=== PATIENT | female | born 1935 | race Two or more races ===

== ENCOUNTER 2017-05-11 11:29 | Observation (INO) | payer MEDICARE, BC ==
[~2017-05-11] VITALS: Ht 157.5 cm; Wt 56.7 kg
[~2017-05-11 11:29] MED LIST: ASPI-816 PO; AZI250 PO; BACDS PO; CALC500T76 PO; CHOL10005 PO; COL625PT PO; ESTROGEN; GABA-547 PO; GLUC500C29 PO; HYDR-3083 PO; HYDR473S4 PO; LEV75 PO; LEVO75TA68 PO; LEVO75TA73 PO; LEVO88TA45 PO; LIS20 PO; LISI-362 PO; LISI-374 PO; METF-409 PO; METF-420 PO; MOME30SO TP; MULTI VITAMIN PO; PROC-35 PO; SIMV-44 PO
--- NOTE | 2017-05-11 11:32 | ER Report ---
History and Physical Time Seen By MD: 11:32 Hx. of Stated Complaint: Diarrhea and abdominal pain HPI/ROS 82-year-old female sent in for a primary care physician's office has been sick since yesterday morning and started out she calls a sour stomach nausea progressed to having multiple episodes of diarrhea states that she's had 10 episodes this morning since stools have been yellow in color crampy abdominal pain nausea Remainder of the 14 system rev: Yes Allergies: Coded Allergies: pneumococcal vaccine (Verified Allergy, Intermediate, 05/11/17) codeine (Unverified Allergy, Mild, NAUSEA/VOMITING, 05/11/17) Home Meds Active Scripts Gabapentin (GABAPENTIN) 100 Mg Capsule, 1-2 MG PO QHS, #30 CAPSULE 3 Refills Prov:BRODY ESCOBAR MD 12/24/14 Levothyroxine Sodium (LEVOTHYROXINE SODIUM) 88 Mcg Tablet, 1 TAB PO QDAY, #90 TAB 3 Refills Prov:MEE DYSON MD 09/20/14 Metformin Hcl (METFORMIN HCL) 1,000 Mg Tablet, 1 TAB PO BID, #180 TAB 3 Refills TAKE ONE TABLET BY MOUTH TWO TIMES A DAY Prov:MEE DYSON MD 06/19/14 Aspirin (Children's Aspirin) 81 Mg Tab.chew, 1 TAB PO DAILY, #100 TAB 4 Refills Prov:MEE DYSON MD 02/01/14 Past Medical/Surgical History type 2 diabetes, ashley, esophageal dilitations Reviewed Nurses Notes: Yes Old Medical Records Reviewed: Yes Hx Smoking: No Smoking Status: Never Smoker Hx Substance Use Disorder: No Hx Alcohol Use: Yes (IN PAST. NO ALCOHOL FOR 45 YEARS) Family History of: HTN, Diabetes Constitutional Vital Sign - Last 24 Hours 05/11/17 05/11/17 05/11/17 05/11/17 11:30 11:39 11:44 11:59 Temp 97.5 Pulse 79 81 67 Resp 18 B/P (MAP) 127/68 127/68 (87) Pulse Ox 96 96 97 O2 Delivery Room Air 05/11/17 05/11/17 05/11/17 05/11/17 12:00 12:14 12:19 12:31 Pulse 67 68 B/P (MAP) 111/56 (74) 140/72 (94) Pulse Ox 96 96 05/11/17 05/11/17 05/11/17 2/20/18 12:34 12:39 12:44 12:59 Pulse 66 61 60 56 Pulse Ox 98 95 96 99 05/11/17 05/11/17 05/11/17 05/11/17 13:00 13:14 13:29 13:30 Pulse 63 62 B/P (MAP) 146/65 (92) 138/61 (86) Pulse Ox 94 96 05/11/17 05/11/17 05/11/17 05/11/17 13:44 13:59 14:00 14:05 Pulse 61 65 62 B/P (MAP) 130/68 (88) Pulse Ox 95 97 92 05/11/17 05/11/17 05/11/17 05/11/17 14:10 14:15 14:20 14:25 Pulse 64 62 62 65 Pulse Ox 93 96 91 96 05/11/17 05/11/17 05/11/17 05/11/17 14:30 14:35 14:40 14:45 Pulse 69 63 61 61 B/P (MAP) 146/73 (97) Pulse Ox 95 95 95 95 05/11/17 05/11/17 05/11/17 05/11/17 14:55 15:00 15:05 15:10 Pulse 66 62 65 68 B/P (MAP) 145/70 (95) Pulse Ox 94 95 91 94 05/11/17 05/11/17 15:15 15:20 Pulse 78 65 Pulse Ox 93 Intake and Output 05/11/17 05/11/17 05/12/17 15:00 23:00 07:00 Intake Total 1000 ml Balance 1000 ml Physical Exam 82-year-old female alert oriented anxious mild distress HEENT head is normocephalic atraumatic tympanic membranes are non-reddened throat is non- reddened mucous membranes are moist neck is supple no JVD heart rate is regular no murmurs rubs or gallops lungs are decreased bilateral bases abdomen is tender mid epigastrically hyperactive bowel sounds moves all extremities no peripheral edema Medical Decision Making Data Points Result Diagram: 05/11/17 1145 05/11/17 1145 Laboratory Hematology Test 05/11/17 11:35 05/11/17 11:45 Urine Color Yellow Urine Clarity Slightly-cloudy Urine pH 5.0 pH (4.8-9.5) Urine Specific [place] 1.018 Urine Protein 100 mg/dL (NEGATIVE) Urine Glucose (UA) 500 mg/dL (NEGATIVE) Urine Ketones Trace mg/dL (NEGATIVE) Urine Blood Negative (NEGATIVE) Urine Nitrite Negative (NEGATIVE) Urine Bilirubin Negative (NEGATIVE) Urine Urobilinogen Negative mg/dL (0.2-1.9) Urine Leukocyte Esterase Moderate (NEGATIVE) Urine RBC 1 /HPF (0-2/HPF) Urine WBC 53 /HPF (0-5/HPF) Urine Squamous Epithelial Cells Many /LPF (</=FEW) Urine Bacteria Many /HPF (NONE-FEW) Urine Mucus Few /HPF (NONE-FEW) Red Blood Count 5.12 M/uL (4.17-5.56) Mean Corpuscular Volume 87.5 fL (80.0-96.0) Mean Corpuscular Hemoglobin 30.0 pg (26.0-33.0) Mean Corpuscular Hemoglobin Concent 34.3 g/dL (32.0-36.0) Red Cell Distribution Width 13.3 % (11.5-14.5) Mean Platelet Volume 7.5 fL (7.2-11.1) Neutrophils (%) (Auto) 79.5 % (39.4-72.5) Lymphocytes (%) (Auto) 14.1 % (17.6-49.6) Monocytes (%) (Auto) 5.8 % (4.1-12.4) Eosinophils (%) (Auto) 0.1 % (0.4-6.7) Basophils (%) (Auto) 0.5 % (0.3-1.4) Nucleated RBC Relative Count (auto) 0.1 /100WBC Neutrophils # (Auto) 6.1 K/uL (2.0-7.4) Lymphocytes # (Auto) 1.1 K/uL (1.3-3.6) Monocytes # (Auto) 0.4 K/uL (0.3-1.0) Eosinophils # (Auto) 0.0 K/uL (0.0-0.5) Basophils # (Auto) 0.0 K/uL (0.0-0.1) Nucleated RBC Absolute Count (auto) 0.01 K/uL Sodium Level 135 mmol/L (137-145) Potassium Level 3.7 mmol/L (3.5-5.0) Chloride Level 100 mmol/L (98-107) Carbon Dioxide Level 18 mmol/L (22-31) Blood Urea Nitrogen 23 mg/dl (7-18) Creatinine 1.40 mg/dl (0.52-1.04) Glomerular Filtration Rate Calc 36.2 Random Glucose 254 mg/dl (75-110) Lactate 2.8 mmol/L (0.7-2.1) Calcium Level 8.8 mg/dl (8.4-10.2) Total Bilirubin 0.7 mg/dl (0.2-1.3) Aspartate Amino Transf (AST/SGOT) 106 U/L (0-35) Alanine Aminotransferase (ALT/SGPT) 177 U/L (0-56) Alkaline Phosphatase 182 U/L (0-126) Troponin I < 0.012 ng/ml Total Protein 7.5 gm/dl (6.3-8.2) Albumin 4.2 g/dl (3.5-5.0) Amylase Level 52 U/L (0-110) Lipase 75 U/L (23-300) Helicobacter pylori IgG Antibody Negative (NEGATIVE) Chemistry Test 05/11/17 11:35 05/11/17 11:45 Urine Color Yellow Urine Clarity Slightly-cloudy Urine pH 5.0 pH (4.8-9.5) Urine Specific [place] 1.018 Urine Protein 100 mg/dL (NEGATIVE) Urine Glucose (UA) 500 mg/dL (NEGATIVE) Urine Ketones Trace mg/dL (NEGATIVE) Urine Blood Negative (NEGATIVE) Urine Nitrite Negative (NEGATIVE) Urine Bilirubin Negative (NEGATIVE) Urine Urobilinogen Negative mg/dL (0.2-1.9) Urine Leukocyte Esterase Moderate (NEGATIVE) Urine RBC 1 /HPF (0-2/HPF) Urine WBC 53 /HPF (0-5/HPF) Urine Squamous Epithelial Cells Many /LPF (</=FEW) Urine Bacteria Many /HPF (NONE-FEW) Urine Mucus Few /HPF (NONE-FEW) White Blood Count 7.7 k/uL (4.5-11.0) Red Blood Count 5.12 M/uL (4.17-5.56) Hemoglobin 15.4 g/dL (12.0-16.0) Hematocrit 44.8 % (34.0-47.0) Mean Corpuscular Volume 87.5 fL (80.0-96.0) Mean Corpuscular Hemoglobin 30.0 pg (26.0-33.0) Mean Corpuscular Hemoglobin Concent 34.3 g/dL (32.0-36.0) Red Cell Distribution Width 13.3 % (11.5-14.5) Platelet Count 291 K/uL (150-450) Mean Platelet Volume 7.5 fL (7.2-11.1) Neutrophils (%) (Auto) 79.5 % (39.4-72.5) Lymphocytes (%) (Auto) 14.1 % (17.6-49.6) Monocytes (%) (Auto) 5.8 % (4.1-12.4) Eosinophils (%) (Auto) 0.1 % (0.4-6.7) Basophils (%) (Auto) 0.5 % (0.3-1.4) Nucleated RBC Relative Count (auto) 0.1 /100WBC Neutrophils # (Auto) 6.1 K/uL (2.0-7.4) Lymphocytes # (Auto) 1.1 K/uL (1.3-3.6) Monocytes # (Auto) 0.4 K/uL (0.3-1.0) Eosinophils # (Auto) 0.0 K/uL (0.0-0.5) Basophils # (Auto) 0.0 K/uL (0.0-0.1) Nucleated RBC Absolute Count (auto) 0.01 K/uL Glomerular Filtration Rate Calc 36.2 Lactate 2.8 mmol/L (0.7-2.1) Calcium Level 8.8 mg/dl (8.4-10.2) Total Bilirubin 0.7 mg/dl (0.2-1.3) Aspartate Amino Transf (AST/SGOT) 106 U/L (0-35) Alanine Aminotransferase (ALT/SGPT) 177 U/L (0-56) Alkaline Phosphatase 182 U/L (0-126) Troponin I < 0.012 ng/ml Total Protein 7.5 gm/dl (6.3-8.2) Albumin 4.2 g/dl (3.5-5.0) Amylase Level 52 U/L (0-110) Lipase 75 U/L (23-300) Helicobacter pylori IgG Antibody Negative (NEGATIVE) Urinalysis Test 05/11/17 11:35 Urine Color Yellow Urine Clarity Slightly-cloudy Urine pH 5.0 pH (4.8-9.5) Urine Specific [place] 1.018 Urine Protein 100 mg/dL (NEGATIVE) Urine Glucose (UA) 500 mg/dL (NEGATIVE) Urine Ketones Trace mg/dL (NEGATIVE) Urine Blood Negative (NEGATIVE) Urine Nitrite Negative (NEGATIVE) Urine Bilirubin Negative (NEGATIVE) Urine Urobilinogen Negative mg/dL (0.2-1.9) Urine Leukocyte Esterase Moderate (NEGATIVE) Urine RBC 1 /HPF (0-2/HPF) Urine WBC 53 /HPF (0-5/HPF) Urine Squamous Epithelial Cells Many /LPF (</=FEW) Urine Bacteria Many /HPF (NONE-FEW) Urine Mucus Few /HPF (NONE-FEW) ED Course/Re-evaluation Clinical Indication for ER IV: Hydration ED Course Received one and half liters of normal saline in the emergency room did receive a gram of Rocephin IV coverage for her UTI culture was ordered did talk to Kishan hospitalist he agrees to accept this patient for dehydration and gastroenteritis UTI Re-evaluation still c/o crampy abdominal pain. Family is very verbal that they would like patient to stay overnight I have asked Dr. Kishan Cervantes to come see patient to evaluate for admission Decision to Disposition Date: May 11, 2017 Decision to Disposition Time: 11:50 Depart Departure Latest Vital Signs Vital Signs Date Time Temp Pulse Resp B/P (MAP) Pulse Ox O2 Delivery O2 Flow Rate FiO2 05/11/17 15:20 65 05/11/17 15:15 93 05/11/17 15:00 145/70 (95) 05/11/17 11:30 97.5 18 Room Air Impression: Primary Impression: Gastroenteritis Additional Impressions: UTI (urinary tract infection) Dehydration Condition: Improved Disposition: Admitted from ER Referrals: CECILIA OLEA PA-C (PCP) Problem Qualifiers TEZ MCCRAY May 11, 2017 11:32
[2017-05-11] MEDS ORDERED: NS(*) 0.9% 1000 ML BAG 1,000 ML IV ONE ×2 (11:40→14:10)
[2017-05-11] MEDS ORDERED: ONDANSETRON 4 MG/2 ML VIAL IVP ONE (11:40)
--- NOTE | 2017-05-11 11:48 | EKG ---
FACILITY: [facility] PATIENT NAME: ALAN CUNNINGHAM : [id number] MR: [id number] V: [id number] EXAM DATE: ORDERING PHYSICIAN: TEZ MCCRAY TECHNOLOGIST: ABIODUN Franco Reason : PAIN Blood Pressure : / mmHG Vent. Rate : 080 BPM Atrial Rate : 080 BPM P-R Int : 188 ms QRS Dur : 092 ms QT Int : 372 ms P-R-T Axes : 067 -10 029 degrees QTc Int : 429 ms Sinus rhythm with premature atrial complexes Nonspecific T wave abnormality Abnormal ECG No previous ECGs available Confirmed by JENNA ARTIS ([id number]) on 05/11/2017 10:22:16 PM Referred By: MAHENDRA Confirmed By:JENNA ARTIS
[2017-05-11 11:54] LABS: PLATELET COUNT, AUTOMATED 291 K/uL (150-450)
[2017-05-11] MEDS ORDERED: fentaNYL CITR 100 MCG/2 ML AMP IVP ONE (11:55)
[2017-05-11] MEDS ORDERED: PANTOPRAZOLE SOD 40 MG IV VIAL IVP ONE (11:55)
--- NOTE | 2017-05-11 13:23 | RADIOLOGY IMAGING REPORT ---
FACILITY: [facility] [place] PATIENT NAME: Tamera Clemente : 1935 MR: [id number] V: [id number] EXAM DATE: ORDERING PHYSICIAN: TEZ MCCRAY TECHNOLOGIST: Location: [facility] Patient: Tamera Clemente : 1935 Visit/Account:[id number] Date of Sevice: 05/11/2017 CT abdomen and pelvis without contrast Indication: Abdominal pain for one day. Comparison: None Available. Technique: Axial CT images are obtained through the abdomen and pelvis. Reformatted coronal and sagit anna images were reviewed. IV contrast was not administered. One of the following dose optimization techniques was utilized in the performance of this exam: auto mated exposure control; adjustment of the mA and/or kV according to the patient's size; or use of an iterative reconstruction technique. Specific details can be referenced in the facility's radiology C T exam operational policy. Findings: Lower lung arrieta: Chronic calcifications in the lower lobes. No focal infiltrate or effusion. Evaluation of the solid organs of the abdomen is limited without IV contrast. Liver: No focal parenchymal abnormality of the liver. Biliary: Gallbladder appears unremarkable as well as the intra and extra hepatic biliary system. Pancreas: Normal appearance. Spleen: Normal appearance. Adrenal glands: Unremarkable. Kidneys / retroperitoneum: No evidence of nephrolithiasis or hydronephrosis no focal abnormality. Bowel / peritoneum / mesenteries: Multiple diverticula seen along the sigmoid and descending colon wi thout pericolonic inflammation. The colon shows no other focal abnormality. The appendix is normal. M ultiple fluid-filled loops of small bowel however no dilatation or focal abnormality to the small bow el. The duodenum appears to have a medial diverticulum measuring approximately 2.7 cm without focal a bnormality. Stomach shows a very small hiatal hernia without other abnormality. Surgical clips seen i n the GE junction. No free air, free fluid, fluid collections or areas of inflammation. Small umbilical hernia containin g fat. Lymph node assessment: No pathologic adenopathy identified. Pelvic structures: Uterus is not visualized may been surgically removed. The remaining pelvic stru ctures visualized within normal limits. Vessels: Mild atherosclerotic calcifications seen throughout a nonaneurysmal abdominal aorta and bran ches. Musculoskeletal / Body wall: No acute or aggressive osseous abnormality. Mild degenerative changes sp ine and hips. IMPRESSION: 1. No acute intra-abdominal abnormality identified. 2. Diverticulosis without radiographic indication diverticulitis. 3. Multiple fluid-filled loops small bowel without obstruction or focal abnormality. The duodenum sung ears to have a diverticulum showing no focal abnormality. 4. Other chronic findings as above. Report Dictated By: Alex Carrasco at 05/11/2017 1:10 PM Report E-Signed By: Alex Carrasco at 05/11/2017 1:19 PM [id number]
[2017-05-11] MEDS ORDERED: cefTRIAXone 1 GM VIAL IVP ONE (14:00)
[2017-05-11] MEDS ORDERED: NS(*) 0.9% 1000 ML BAG 1,000 ML IV PRN (14:41)
[2017-05-11] MEDS ORDERED: fentaNYL CITR 100 MCG/2 ML AMP IVP PRN (14:45)
[2017-05-11] MEDS ORDERED: GI COCKTAIL 60 ML BTL PO PRN (14:45)
--- NOTE | 2017-05-11 15:17 | History & Physical ---
History of Present Illness History of Present Illness 82yo female with a h/o esophageal stricture, and hiatal hernia repair who came to the ER for nausea and diarrhea. She was in her normal state of health until yesterday. She started having abdominal discomfort that was mild and mid- epigastric. At midnight, she developed nausea and diarrhea. The diarrhea is every hour, watery and yellow tinged. There has been no blood or melena. She was cold last night and then hot. No cough, fevers. No sick contacts, new medications or recent travel. She drinks city water. She lives with her daughter, so they eat all the same food. In the ER, she was given Fentanyl, IVF, Protonix, Zofran and Ceftriaxone. 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 Home Meds Active Scripts Gabapentin (GABAPENTIN) 100 Mg Capsule, 1-2 MG PO QHS, #30 CAPSULE 3 Refills Prov:BRODY ESCOBAR MD 12/24/14 Levothyroxine Sodium (LEVOTHYROXINE SODIUM) 88 Mcg Tablet, 1 TAB PO QDAY, #90 TAB 3 Refills Prov:MEE DYSON MD 09/20/14 Metformin Hcl (METFORMIN HCL) 1,000 Mg Tablet, 1 TAB PO BID, #180 TAB 3 Refills TAKE ONE TABLET BY MOUTH TWO TIMES A DAY Prov:MEE DYSON MD 06/19/14 Aspirin (Children's Aspirin) 81 Mg Tab.chew, 1 TAB PO DAILY, #100 TAB 4 Refills Prov:MEE DYSON MD 02/01/14 Allergies: Coded Allergies: pneumococcal vaccine (Verified Allergy, Intermediate, 05/11/17) codeine (Unverified Allergy, Mild, NAUSEA/VOMITING, 05/11/17) Patient History: FH: cerebral aneurysm FATHER, , Age:58 FH: diabetes mellitus BROTHER OR SISTER, BROTHER OR SISTER, BROTHER OR SISTER, BROTHER OR SISTER BROTHER OR SISTER FH: heart disease FH: stomach cancer MOTHER, , Age:62 FHx: cerebral aneurysm Hx Smoking: No Smoking Status: Never Smoker Caffeine Intake: Coffee Caffeine/Cups Per Day: 1 Hx Alcohol Use: Yes (IN PAST. NO ALCOHOL FOR 45 YEARS) Hx Substance Use Disorder: No Review of Systems All Systems Reviewed/Normal: Yes, Except as Noted Exam Vital Signs Vital Signs Date Time Temp Pulse Resp B/P (MAP) Pulse Ox O2 Delivery O2 Flow Rate FiO2 05/11/17 14:55 66 94 05/11/17 14:30 146/73 (97) 05/11/17 11:30 97.5 18 Room Air General Appearance: Alert, Awake, No Acute Distress Neuro: No Gross deficits Eyes: PERRLA ENT: Moist Mucous Membranes Cardiovascular: Regular Rate and Rhythm Respiratory: Clear to Auscultation GI: Other (Soft, hyperactive BS, mild discomfort with palpation epigastrically) : No CVA Tenderness Extremities: No Edema Integumentary: No Jaundice, No Cyanosis Medical Decision Making Data Points Result Diagram: 05/11/17 1145 05/11/17 1145 EKG / Imaging Imaging CT abd/pelvis - 1. No acute intra-abdominal abnormality identified. 2. Diverticulosis without radiographic indication diverticulitis. 3. Multiple fluid-filled loops small bowel without obstruction or focal abnormality. The duodenum appears to have a diverticulum showing no focal abnormality. 4. Other chronic findings as above. Assessment and Plan Problems: (1) Gastroenteritis Status: Acute Assessment & Plan: The patient has had symptoms for about 18 hours prior to admission. She hasn't had anymore diarrhea since being in the ER. She appears to be dehydrated and still not able to take anything orally. Will hydrate, check H. Pylori, give Protonix, give GI cocktail prn. Recheck labs in the morning. (2) Pyuria Status: Acute Assessment & Plan: Many SCE seen. Urine culture pending. Will recheck with straight catheterization, but she already received Ceftriaxone in the ER, so won 't culture. (3) Elevated LFTs Status: Acute Assessment & Plan: Etiology unclear. Will follow. (4) CKD (chronic kidney disease) stage 3, GFR 30-59 ml/min Status: Chronic Assessment & Plan: Baseline Cr is about 1.2. Will follow. 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 She takes Gabapentin prn, so will hold for now. (6) Hypothyroid Status: Chronic Assessment & Plan: Hold chronic levothyroxine for now. Copies to: CECILIA OLEA PA-C Venous Thromboembolism Antithrombotics Is Pt On Any Antithrombotics?: No Exam Sepsis Risk: No Definite Risk JENNA ARTIS MD May 11, 2017 15:17
[2017-05-11 19:07] VITALS: BP 140/76
[2017-05-11] MEDS: INSULIN HUM LISPRO 100 UN/ML 3 ML VIAL SUBQ PRN (21:33)
[2017-05-11 23:04] VITALS: BP 141/66
[2017-05-12 03:09] VITALS: BP 141/78
[2017-05-12 06:12] LABS: PLATELET COUNT, AUTOMATED 194 K/uL (150-450)
[2017-05-12 07:36] VITALS: BP 159/78
[2017-05-12] MEDS ORDERED: PANTOPRAZOLE SOD 40 MG IV VIAL IVP SCH (09:00)
[2017-05-12] MEDS ORDERED: ENOXAPARIN 40 MG/0.4ML SYR SC SCH (09:00)
[2017-05-12] MEDS: INSULIN HUM LISPRO 100 UN/ML 3 ML VIAL SUBQ PRN (09:24)
--- NOTE | 2017-05-12 10:13 | Hospitalist Depart ---
Discharge Summary Reason for Hosp/Final Diag: (1) Gastroenteritis Status: Acute Hospital Course & Plan: She did present with nausea, vomiting, and diarrhea. This has resolved without specific intervention, and she is now tolerating oral intake. (2) Dehydration Status: Acute Hospital Course & Plan: She did have laboratory findings consistent with dehydration. These have improved with IV fluids. (3) Pyuria Status: Acute Hospital Course & Plan: Her urine did have leukocytes, but was a contaminated sample. She is asymptomatic. (4) Elevated LFTs Status: Acute Hospital Course & Plan: She did have mildly elevated liver enzymes consistent with viral gastroenteritis. 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 We did hold this initially, but it has now been restarted. (6) Hypothyroid Status: Chronic Hospital Course & Plan: She is on chronic treatment with Synthroid. (7) CKD (chronic kidney disease) stage 3, GFR 30-59 ml/min Status: Chronic Departure Latest Vital Signs Laboratory Tests Test 05/11/17 11:35 05/11/17 11:45 05/11/17 17:13 05/11/17 21:30 Urine Color Yellow Urine Clarity Slightly-cloudy Urine pH 5.0 pH Urine Specific [place] 1.018 Urine Protein 100 mg/dL Urine Glucose (UA) 500 mg/dL Urine Ketones Trace mg/dL Urine Blood Negative Urine Nitrite Negative Urine Bilirubin Negative Urine Urobilinogen Negative mg/dL Urine Leukocyte Esterase Moderate Urine RBC 1 /HPF Urine WBC 53 /HPF Urine Squamous Epithelial Cells Many /LPF Urine Bacteria Many /HPF Urine Mucus Few /HPF White Blood Count 7.7 k/uL Red Blood Count 5.12 M/uL Hemoglobin 15.4 g/dL Hematocrit 44.8 % Mean Corpuscular Volume 87.5 fL Mean Corpuscular Hemoglobin 30.0 pg Mean Corpuscular Hemoglobin Concent 34.3 g/dL Red Cell Distribution Width 13.3 % Platelet Count 291 K/uL Mean Platelet Volume 7.5 fL Neutrophils (%) (Auto) 79.5 % Lymphocytes (%) (Auto) 14.1 % Monocytes (%) (Auto) 5.8 % Eosinophils (%) (Auto) 0.1 % Basophils (%) (Auto) 0.5 % Nucleated RBC Relative Count (auto) 0.1 /100WBC Neutrophils # (Auto) 6.1 K/uL Lymphocytes # (Auto) 1.1 K/uL Monocytes # (Auto) 0.4 K/uL Eosinophils # (Auto) 0.0 K/uL Basophils # (Auto) 0.0 K/uL Nucleated RBC Absolute Count (auto) 0.01 K/uL Sodium Level 135 mmol/L Potassium Level 3.7 mmol/L Chloride Level 100 mmol/L Carbon Dioxide Level 18 mmol/L Blood Urea Nitrogen 23 mg/dl Creatinine 1.40 mg/dl Glomerular Filtration Rate Calc 36.2 Random Glucose 254 mg/dl Lactate 2.8 mmol/L Calcium Level 8.8 mg/dl Total Bilirubin 0.7 mg/dl Aspartate Amino Transf (AST/SGOT) 106 U/L Alanine Aminotransferase (ALT/SGPT) 177 U/L Alkaline Phosphatase 182 U/L Troponin I < 0.012 ng/ml Total Protein 7.5 gm/dl Albumin 4.2 g/dl Amylase Level 52 U/L Lipase 75 U/L Helicobacter pylori IgG Antibody Negative Whole Blood Glucose 164 mg/DL 197 mg/DL Test 05/12/17 05:53 05/12/17 08:09 White Blood Count 4.1 k/uL Red Blood Count 4.13 M/uL Hemoglobin 12.6 g/dL Hematocrit 36.3 % Mean Corpuscular Volume 87.9 fL Mean Corpuscular Hemoglobin 30.4 pg Mean Corpuscular Hemoglobin Concent 34.6 g/dL Red Cell Distribution Width 13.3 % Platelet Count 194 K/uL Mean Platelet Volume 7.4 fL Neutrophils (%) (Auto) 49.1 % Lymphocytes (%) (Auto) 35.9 % Monocytes (%) (Auto) 12.3 % Eosinophils (%) (Auto) 2.4 % Basophils (%) (Auto) 0.3 % Nucleated RBC Relative Count (auto) 0.0 /100WBC Neutrophils # (Auto) 2.0 K/uL Lymphocytes # (Auto) 1.5 K/uL Monocytes # (Auto) 0.5 K/uL Eosinophils # (Auto) 0.1 K/uL Basophils # (Auto) 0.0 K/uL Nucleated RBC Absolute Count (auto) 0.00 K/uL Sodium Level 134 mmol/L Potassium Level 3.3 mmol/L Chloride Level 107 mmol/L Carbon Dioxide Level 17 mmol/L Blood Urea Nitrogen 16 mg/dl Creatinine 1.10 mg/dl Glomerular Filtration Rate Calc 47.8 Random Glucose 182 mg/dl Calcium Level 8.0 mg/dl Total Bilirubin 0.3 mg/dl Aspartate Amino Transf (AST/SGOT) 39 U/L Alanine Aminotransferase (ALT/SGPT) 96 U/L Alkaline Phosphatase 108 U/L Total Protein 5.3 gm/dl Albumin 2.7 g/dl Whole Blood Glucose 177 mg/DL Current Medications Medications (Trade) Dose Ordered Sig/Thanh Route PRN Reason Start Time Stop Time Status Last Admin Dose Admin Sodium Chloride 1,000 ml @ 250 mls/hr Q4H ONCE IV 05/11/17 11:40 05/11/17 14:52 DC 05/11/17 11:45 Ondansetron HCl (Zofran(*) 4 Mg/ 2 ml(Or Equiv)) 4 mg ONCE ONCE IVP 05/11/17 11:40 05/11/17 11:41 DC 05/11/17 11:45 Fentanyl Citrate (fentaNYL CITR(*) 100 MCG/2 ML AMP) 50 mcg ONCE ONCE IVP 05/11/17 11:55 05/11/17 11:56 DC 05/11/17 12:04 Pantoprazole Sodium (Protonix 40 Mg Iv Vial (*) (Or Equiv)) 40 mg ONCE ONCE IVP 05/11/17 11:55 05/11/17 11:56 DC 05/11/17 12:00 Ceftriaxone Sodium (Rocephin(*) 1 Gm Vial (Or Equiv)) 1 gm ONCE ONCE IVP 05/11/17 14:00 05/11/17 14:01 DC 05/11/17 14:02 Sodium Chloride 1,000 ml @ 125 mls/hr Q8H ONCE IV 05/11/17 14:10 05/11/17 14:52 DC 05/11/17 13:50 Sodium Chloride 1,000 ml @ 100 mls/hr Q10H PRN IV RUN CONTINUOUSLY FOR HYDRATION 05/11/17 14:41 06/10/17 14:40 05/12/17 03:56 Influenza Virus Vaccine (Flu Vac ([id number] Formula)) 0.5 ml ONCE ONCE IM ONLY 05/14/17 09:00 05/14/17 09:01 Enoxaparin Sodium (Lovenox 40 Mg/ 0.4 ml Syr (Or Equiv)) 40 mg Q24H SC 2/21/18 09:00 06/11/17 08:59 05/12/17 08:27 Insulin Human Lispro (HumaLOG 100 UN/ ML 3 ML VIAL (OR EQUIV)) 2-10 UNITS SS PRN SUBQ SLIDING SCALE INSULIN 05/11/17 14:45 06/10/17 14:44 05/12/17 09:24 Pantoprazole Sodium (Protonix 40 Mg Iv Vial (*) (Or Equiv)) 40 mg Q24H IVP 05/12/17 09:00 06/11/17 08:59 05/12/17 08:27 Lido/Ocampo Alk/PB/ ALOH/MGOH/Simeth (Gi Cocktail 60 ml Btl) 10 ml TID PRN PO DYSPEPSIA 05/11/17 14:45 06/10/17 14:44 Fentanyl Citrate (fentaNYL CITR(*) 100 MCG/2 ML AMP) 50 mcg Q4H PRN IVP PAIN 05/11/17 14:45 05/25/17 14:44 05/11/17 17:10 Weight (Pounds): 125 Result Diagram: 05/12/17 0553 05/12/17 0553 Condition: Improved Discharge: Home, Self Care Discharge Instructions Home Meds Active Scripts Gabapentin (GABAPENTIN) 100 Mg Capsule, 1-2 MG PO QHS, #30 CAPSULE 3 Refills Prov:RBODY ESCOBAR MD 12/24/14 Levothyroxine Sodium (LEVOTHYROXINE SODIUM) 88 Mcg Tablet, 1 TAB PO QDAY, #90 TAB 3 Refills Prov:MEE DYSON MD 09/20/14 Metformin Hcl (METFORMIN HCL) 1,000 Mg Tablet, 1 TAB PO BID, #180 TAB 3 Refills TAKE ONE TABLET BY MOUTH TWO TIMES A DAY Prov:MEE DYSON MD 06/19/14 Aspirin (Children's Aspirin) 81 Mg Tab.chew, 1 TAB PO DAILY, #100 TAB 4 Refills Prov:MEE DYSON MD 02/01/14 Diet: Diabetic Activity: As Tolerated Copies to: CECILIA OLEA PA-C Venous Thromboembolism Antithrombotics Is Pt On Any Antithrombotics?: No JAYSON IZQUIERDO DO May 12, 2017 10:13
[2017-05-14] MEDS ORDERED: INFLUENZA VIRUS VAC 0.5 ML SYR IM ONLY ONE (09:00)
== END 2017-05-12 10:04 | disposition home or self-care (01) ==
LOC: ER 11:39 → MED 15:21 → EDBEDREQ 15:22 → EDBEDREQTM 15:22
PROVIDERS: ADMIT Internal Medicine; ATTEND Internal Medicine
DX: K52.9 Noninfective gastroenteritis and colitis, unspecified (principal); N39.0 Urinary tract infection, site not specified; E86.0 Dehydration; R79.89 Other specified abnormal findings of blood chemistry; E03.9 Hypothyroidism, unspecified; E11.49 Type 2 diabetes mellitus with other diabetic neurological complication; E11.22 Type 2 diabetes mellitus with diabetic chronic kidney disease; N18.3 Chronic kidney disease, stage 3 (moderate)
CPT/HCPCS: 36415; 36416; 74176; 81001; 82150; 82948; 83605; 83690; 84484; 85025; 86677; 87045; 87077; 87088; 87186; 93005; 96361; 96372; 96374; 96375; 99285; A9270; C9113; G0378; J0696; J1650; J1815; J2405; J3010; J7030; 82040; 82247; 82310; 82374; 82435; 82565; 82947; 84075; 84132; 84155; 84295; 84450; 84460; 84520

== ENCOUNTER → 2018-09-07 | Outpatient (CLI) | payer MEDICARE, BC ==
[~2018-09-07] MED LIST changes: -ASPI-816 PO; +ASPI-870 PO; -METF-420 PO; +METF-452 PO
--- NOTE | 2018-09-07 12:45 | RADIOLOGY IMAGING REPORT ---
FACILITY: [facility] PATIENT NAME: Tamera Clemente : 1935 MR: [id number] V: [id number] EXAM DATE: ORDERING PHYSICIAN: CRUZ ROPER TECHNOLOGIST: Location: [facility] [place] Patient: Tamera Clemente : 1935 Visit/Account:[id number] Date of Sevice: 09/07/2018 EXAMINATION: Doppler ultrasound deep veins unilateral lower extremity HISTORY: Pain after fall 2 weeks ago. Bruising. Evaluate for deep venous thrombosis. COMPARISON: None. FINDINGS: Grayscale compression, duplex and color Doppler interrogation of the right lower extremity deep veins from common femoral vein to proximal calf was performed. The greater saphenous vein in the ipsilater al proximal thigh was evaluated using similar technique. Right lower extremity: Common femoral vein: Patent. Femoral vein: Patent. Deep femoral vein: Patent. Popliteal vein: Patent. Visualized deep calf veins: Patent. Greater saphenous vein in the proximal thigh: Patent. Popliteal fossa: No popliteal cyst or bursal fluid collection is seen. Waveforms: Normal respiratory phasicity and spontaneous flow is present. Right thigh, area of concern: Additional cine loop images are provided in the area of concern, labele d right thigh. The soft tissues have a normal sonographic appearance. No localized fluid collection or hematoma is seen. IMPRESSION: 1. No evidence for acute deep venous thrombosis of the right lower extremity. 2. Right calf veins are patent where visualized. Report Dictated By: Aruna Garza MD at 09/07/2018 12:34 PM Report E-Signed By: Aruna Garza MD at 09/07/2018 12:40 PM WSN:CHALINO
--- NOTE | 2018-09-07 13:46 | RADIOLOGY IMAGING REPORT ---
FACILITY: PATIENT NAME: Tamera Clemente : 1935 MR: [id number] V: [id number] EXAM DATE: ORDERING PHYSICIAN: CRUZ ROPER TECHNOLOGIST: Location: [facility] - [place] Patient: Tamera Clemente : 1935 Visit/Account:[id number] Date of Sevice: 09/07/2018 EXTREMITY NON-VASCULAR RIGHT INDICATION: Pain and palpable lump posterior right thigh after injury. COMPARISON: Right lower extremity venous Doppler ultrasound 09/07/2018 FINDINGS: Targeted ultrasound is performed in the area of palpable concern, right thigh posteriorly. Grayscale images and 2 cine loop images are provided. The soft tissues have a normal sonographic appearance. No solid or cystic lesion is seen. No localized fluid collection or hematoma is demonstrated. IMPRESSION: 1. No definite sonographic abnormality in the area of palpable concern, right thigh posteriorly. 2. If persistent area of palpable concern, increase in size of the abnormality and/or associated ten derness, recommend further imaging with MRI. Report Dictated By: Aruna Garza MD at 09/07/2018 1:34 PM Report E-Signed By: Aruna Garza MD at 09/07/2018 1:40 PM WSN:[email or web address]
== END ==
LOC: US 11:05
PROVIDERS: ATTEND Family Medicine
DX: R22.41 Localized swelling, mass and lump, right lower limb (principal)